=== PATIENT | male | born 1990 | race Two or more races ===

== ENCOUNTER 2023-03-04 16:52 | Emergency (ER) | payer BC ==
[~2023-03-04] VITALS: Ht 177.8 cm; Wt 90.7 kg
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
--- NOTE | 2023-03-04 18:07 | NUR ---
BRANDON CLAY AT BEDSIDE FOR EVAL.
[2023-03-04] MEDS ORDERED: CYCL10TA9 PO (18:19)
[2023-03-04] MEDS ORDERED: NAPR-1009 PO (18:19)
[2023-03-04] MEDS ORDERED: KETOROLAC TROMETHAMINE INJ 60 MG/2 ML VIAL IM ONE (18:30)
[2023-03-04] MEDS ORDERED: KETOROLAC TROMETHAMINE INJ 30 MG/ML VIAL ONE (18:33)
--- NOTE | 2023-03-04 19:53 | NUR ---
PT OK TO DISCHARGE PER IAN CLAY. Patient discharged to home in stable condition. Written and verbal after care instructions given. Patient verbalizes understanding of instruction.Patient is awake and alert to self, day, and place. PT ambulatory with a steady gait
[2023-03-04 20:46] VITALS: BP 138/83
== END 2023-03-04 20:46 | disposition home or self-care (01) ==
LOC: ER 16:59
DX: S16.1XXA Strain of muscle, fascia and tendon at neck level, initial encounter (principal); S39.012A Strain of muscle, fascia and tendon of lower back, initial encounter; F17.210 Nicotine dependence, cigarettes, uncomplicated; Z79.899 Other long term (current) drug therapy; V89.2XXA Person injured in unspecified motor-vehicle accident, traffic, initial encounter; Y93.89 Activity, other specified; Y92.411 Interstate highway as the place of occurrence of the external cause; Y99.8 Other external cause status
CPT/HCPCS: 99283; 99406; 96372; 72110; J1885